=== PATIENT | male | born 1960 | race Caucasian/White ===

== ENCOUNTER → 2021-11-26 08:18 | Outpatient (BNVA) | payer OTHER, SELFPAY | PROVIDERS: PCP Obstetrics & Gynecology; Visit Provider Physician Assistant | DX: S62.304A Unspecified fracture of fourth metacarpal bone, right hand, initial encounter for closed fracture (principal) | CPT/HCPCS: 99202 ==

== ENCOUNTER 2021-12-01 08:24 | Outpatient (REF) | payer OTHER, SELFPAY ==
--- NOTE | ~2021-12-01 | XR_ITS ---
EXAMINATION: XR hand RT min 3V CLINICAL INFORMATION: Pain COMPARISON: None TECHNIQUE: 3 views of the hand XR/XR hand RT min 3V FINDINGS/IMPRESSION: Lack of a true lateral view limits assessment. No fracture or dislocation. Well corticated osseous fragment abutting the ulnar styloid changed from prior may reflect sequelae of remote ulnar styloid fracture. Advanced degenerative changes of the first carpometacarpal joint with loss of joint space, and radial subluxation of the base of the first metacarpal with respect to the trapezium, with exuberant osteophytosis, similar to prior. There is persistent extension of the thumb at the first metacarpophalangeal joint across multiple images. Again noted is a punctate radiodense foreign body noted along the first proximal interphalangeal joint measuring 3 mm.
== END 2021-12-01 08:25 | disposition home or self-care (01) ==
LOC: HO.HOSX 08:24
PROVIDERS: Visit Provider Orthopaedic Surgery
DX: S62.304D Unspecified fracture of fourth metacarpal bone, right hand, subsequent encounter for fracture with routine healing (principal)
CPT/HCPCS: 73130; 99212

== ENCOUNTER 2021-12-22 12:38 | Outpatient (REF) | payer OTHER, SELFPAY ==
--- NOTE | ~2021-12-22 | XR_ITS ---
EXAMINATION: XR hand RT min 3V CLINICAL INFORMATION: Reason for Exam M79.641 - Pain in right hand COMPARISON: 12/01/2021 hand radiographs TECHNIQUE: Three views of the hand XR/XR hand RT min 3V FINDINGS/IMPRESSION: Obliquely oriented mildly displaced fracture of the fourth metacarpal metadiaphysis in unchanged alignment. No bony callus formation or interval periosteal reaction. Redemonstration of a remote ulnar styloid avulsion fracture. Advanced degenerative changes of the first carpometacarpal joint with complete loss of joint space. Redemonstration of a punctate radiodense foreign body in the soft tissues of the first digit. Soft tissues are unremarkable.
== END 2021-12-22 12:39 | disposition home or self-care (01) ==
LOC: HO.HOSX 12:38
PROVIDERS: Visit Provider Physician Assistant
DX: S62.304D Unspecified fracture of fourth metacarpal bone, right hand, subsequent encounter for fracture with routine healing (principal)
CPT/HCPCS: 73130; 99212

== ENCOUNTER 2022-02-02 08:19 | Outpatient (REF) | payer OTHER, SELFPAY | END 2022-02-02 08:20 | disposition home or self-care (01) | LOC: HO.HOSX 08:19 | PROVIDERS: Visit Provider Orthopaedic Surgery | DX: Z13.89 Encounter for screening for other disorder (principal) ==

== ENCOUNTER 2025-01-25 02:15 | Emergency (ER) | payer OTHER, SELFPAY ==
[2025-01-25 02:20] VITALS: BP 100/54; PULSE 85; RESP 14; TEMP 36.5; O2SAT 94; BMI 28.9
--- NOTE | 2025-01-25 02:35 | MHC.EDTECH ---
assumed care of pt at this time
[2025-01-25] MEDS: 0.9 % Sodium Chloride 1,000 ML 999 ML IV (02:48)
[2025-01-25 02:49] LABS: MANUAL DIFF FLAG NO
[2025-01-25 02:50] LABS: Basophils Absolute Auto 0.1 X10*3/uL (0.0-0.2); Basophils Percent Auto 0.9 % (0-2); Eosinophils Absolute Auto 0.1 X10*3/uL (0.0-0.4); Hematocrit 38.3 % (42.0-52.0); Hemoglobin 13.4 g/dl (14.0-18.0); Imm Gran Abs Auto 0.03 X10*3/uL (0.00-0.03); Imm Gran Pct Auto 0.3 % (0.0-0.4); Lymphocytes Absolute Auto 1.3 X10*3/uL (1.2-4.9); Lymphocytes Percent Auto 13.7 % (20-40); Mean Corpuscular Volume 85.7 fL (80.0-98.0); Mean Platelet Volume 9.6 fL (9.4-12.4); Monocytes Absolute Auto 0.5 X10*3/uL (0.1-1.2); Neutrophils Absolute Auto 7.3 x10*3/uL (2.0-8.3); Neutrophils Percent Auto 79.1 % (45-73); Platelet Count 303 X10*3/uL (160-400); Red Blood Count 4.47 X10*6/uL (4.60-5.80); Red Cell Distribution Width 12.9 % (11.0-16.0); White Blood Count 9.2 X10*3/uL (4.8-10.8)
[2025-01-25 03:09] LABS: Alanine Aminotransferase 24 U/L (0-40); Albumin Level 3.7 g/dL (3.5-5.0); Alkaline Phosphatase 74 U/L (39-117); Anion Gap 13 (12-20); Aspartate Amino Transferase 28 U/L (5-37); Bilirubin Total 0.4 mg/dL (0.0-1.0); Blood Urea Nitrogen 17 mg/dL (9-16); Calcium 8.4 mg/dL (8.4-10.2); Carbon Dioxide 20 mmol/L (22-29); Chloride 107 mmol/L (96-108); Creatinine Clr Calc Pharmacy 105.3; Estimated Glomerular Filt Rate > 60; Glucose Random 113 mg/dL (60-115); Magnesium 1.8 mg/dL (1.6-2.6); Potassium 4.8 mmol/L (3.3-5.1); Sodium 135 mmol/L (135-145); Total Protein 6.1 g/dL (6.5-8.0)
--- NOTE | 2025-01-25 03:20 | ED_ITS ---
HPI - General Adult General Chief complaint: General Medical Stated complaint: full body cramps Time Seen by Provider: 01/25/25 02:27 Source: patient, RN notes reviewed and old records reviewed Mode of arrival: ambulatory Limitations: no limitations History of Present Illness ED Provider: Jasmin COOK narrative: 64-year-old male with past medical history significant for hypertension, depression who presents for evaluation of body cramping. Patient reports that about 4 or 5 hours ago he started to have cramping throughout his entire body. He states that this was episodic he felt as if any time he moved a body part at all that would cramp up for a few minutes he believes this is because he was dehydrated that he drank Gatorade prior to coming in he has not had any cramps in about the last 35 minutes he denies any other associated symptoms including fevers, chills, cough, pain, abdominal pain, nausea, vomiting, diarrhea he is not on any diuretics he reports that he had a tooth pulled today and was out golfing all day. He believes he did not drink a lot of water. Related Data Home Medications ?Medication ?Instructions ?Recorded ?Confirmed No Known Home Meds 11/26/21 11/26/21 Allergies Allergy/AdvReac Type Severity Reaction Status Date / Time No Known Allergies Allergy Verified 01/25/25 02:24 Review of Systems 2 Constitutional: Constitutional: Reports body ache(s), Denies chills, Denies fever(s), Denies frequent falls and Denies headache(s) Eyes: Eyes: Denies blurry vision and Denies exophthalmos ENT: Denies vertigo, Denies dizziness and Denies headache(s) Cardiovascular: Cardiovascular: Denies chest pain and Denies dyspnea Respiratory: Respiratory: Denies cough and Denies dyspnea Gastrointestinal: Gastrointestinal: Denies abdominal pain, Denies nausea and Denies vomiting Musculoskeletal: Musculoskeletal: Denies back pain Integumentary/Breasts: Skin/Breast: Denies rash Neurologic: Denies vertigo, Denies dizziness, Denies frequent falls and Denies headache(s) Psychiatric: Psychiatric: Denies anxiety [facility] Social History Social History Alcohol intake: former Smoked in Last 30 Days: No Use of substances other than those prescribed or required for medical reasons: Yes Substance Use Type: Marijuana Advance Directives: No Advance Directives Information Provided: Yes Do you have a plan to hurt others: No Plan Current occupational status: retired Current occupation: Lt handed Physical Exam ED Vital Signs: Vital Signs - 24 hr 01/25/25 02:20 01/25/25 03:49 Temperature 97.7 F 97.6 F Pulse Rate 85 68 Respiratory Rate 14 16 Blood Pressure 100/54 L 106/68 Pulse Oximetry 94 97 Oxygen Delivery Method Room Air Room Air BMI result Body Mass Index 28.9 Const General: healthy appearing, comfortable, no acute distress, alert and awake Nutritional Appearance: well nourished Orientation/consciousness: patient oriented x3 HENMT Head: Yes normocephalic and Yes atraumatic Eyes Eyelids: Yes eyelids normal Conjunctivae: conjunctivae normal Sclerae: sclerae normal Corneas: corneas normal Pupils: Equal, round and reactive pupils present EOM: EOMs intact bilaterally Neck Neck: Yes full ROM Resp Effort & Inspection: normal respiratory effort, able to speak in complete sentences, no audible wheezes and not labored Auscultation: clear to auscultation bilaterally Cardio Rate: regular rate Rhythm: regular rhythm GI Inspection: No distended Palpation (GI): Soft to palpation, not firm, nontender, no guarding and not rigid Skin General skin exam: no rashes or lesions noted and elasticity normal Neuro General: patient oriented x3 Cranial nerves: Yes Equal, round and reactive pupils present and Yes Bilaterally intact EOM present Cognition (Neuro): normal cognition Extrem Other: Moving all extremities well without any obvious deformities Course Reevaluation(s) Reevaluation #1: Patient re-evaluated, he has had no further cramping Time: 03:42 Medications Administered Discontinued Medications Generic Name Dose Route Start Last Admin Trade Name Freq PRN Reason Stop Dose Admin Sodium Chloride 1,000 mls @ 999 mls/hr 01/25/25 02:45 01/25/25 03:50 Ns IV 01/25/25 03:45 Infused .Q1H1M CIARAN Infusion Medical Decision Making Medical Decision Making MDM Narrative: 64-year-old male presents for evaluation of cramping. He symptoms in the last 35 minutes or so since he drank a lot of Gatorade not been having any nausea, vomiting, or diarrhea and he was not on any diuretics. it is possible that he was dehydrated from poor oral intake. he has not been doing any excessive physical activity. he denies any fevers, chills, cough, viral symptoms. He has no abdominal pain. He has a reassuring exam. His labs are significant for a mild anemia of unclear etiology. He denies any black or bloody stool. His chemistries are significant for a carbon dioxide level that is low at 20 which may be related to hyperventilating when he was in pain. his BUN is just above normal at 17 in his CPK is elevated to 230. It was not high enough to suggest acute rhabdomyolysis. we will treat with IV fluids.The patient's blood pressure is slightly low at 100/54, we will treat with IV fluids Differential Diagnosis Differential Diagnoses: The differential diagnosis associated with the presentation includes Elevated CK Rhabdomyolysis Dehydration CAROLINE Lab Data MDM Lab Attestation statement: I reviewed the patient's lab results. as above 01/25/25 02:43 01/25/25 02:43 Labs: Lab Results 01/25/25 Range/Units 02:43 WBC 9.2 (4.8-10.8) X10*3/uL RBC 4.47 L (4.60-5.80) X10*6/uL Hgb 13.4 L (14.0-18.0) g/dl Hct 38.3 L (42.0-52.0) % MCV 85.7 (80.0-98.0) fL MCH 30.0 (27.0-33.0) pg MCHC 35.0 (31.0-36.0) g/dl RDW 12.9 (11.0-16.0) % Plt Count 303 (160-400) X10*3/uL MPV 9.6 (9.4-12.4) fL Immature Gran % (Auto) 0.3 (0.0-0.4) % Neut % (Auto) 79.1 H (45-73) % Lymph % (Auto) 13.7 L (20-40) % Dooly % (Auto) 5.0 (2-11) % Eos % (Auto) 1.0 (0-4) % Baso % (Auto) 0.9 (0-2) % Lymph # (Auto) 1.3 (1.2-4.9) X10*3/uL Dooly # (Auto) 0.5 (0.1-1.2) X10*3/uL Eos # (Auto) 0.1 (0.0-0.4) X10*3/uL Baso # (Auto) 0.1 (0.0-0.2) X10*3/uL Abs Immat Gran (auto) 0.03 (0.00-0.03) X10*3/uL Absolute Neuts (auto) 7.3 (2.0-8.3) x10*3/uL Absolute Nucleated RBC 0.000 (0.0-0.012) X10*3/uL Nucleated RBC % (auto) 0.0 (0.0-0.2) /100WBC Sodium 135 (135-145) mmol/L Potassium 4.8 (3.3-5.1) mmol/L Chloride 107 (96-108) mmol/L Carbon Dioxide 20 L (22-29) mmol/L Anion Gap 13 (12-20) BUN 17 H (9-16) mg/dL Creatinine 0.84 (0.5-1.4) mg/dL Estim Creat Clear Calc 105.3 Estimated GFR > 60 Random Glucose 113 (60-115) mg/dL Calcium 8.4 (8.4-10.2) mg/dL Magnesium 1.8 (1.6-2.6) mg/dL Total Bilirubin 0.4 (0.0-1.0) mg/dL AST 28 (5-37) U/L ALT 24 (0-40) U/L Alkaline Phosphatase 74 (39-117) U/L Total Creatine Kinase 230 H (38-174) U/L Total Protein 6.1 L (6.5-8.0) g/dL Albumin 3.7 (3.5-5.0) g/dL Discharge Plan Discharge Clinical Impression: Muscle cramps Patient Disposition: Home, Self-Care Instructions: Muscle Spasm (ED) Additional Instructions: Your workup in the ER today was quite reassuring. Your red blood counts were slightly below normal as discussed Follow this up with your primary doctor. It is possible that your cramps were from mild dehydration and you were treated with IV fluids Return for new or worsening symptoms Prescriptions: No Action No Known Home Meds Print Language: Sammarinese
[2025-01-25 03:49] VITALS: BP 106/68; PULSE 68; RESP 16; TEMP 36.4; O2SAT 97
--- NOTE | 2025-01-25 04:06 | PC.NURSE ---
This customs entry writer assumed care of this Pt at 0330. Pt not answering simple yes or no questions, yelling out with every movement. Pt got out of bed, unsteady for urinal usage, Pt guided back to bed. Pt moved over to hospital bed. Bed lowered, locked and bed alarm placed.
[2025-01-25 04:10] VITALS: BP 106/68; PULSE 68; RESP 16; TEMP 36.4; O2SAT 97
== END 2025-01-25 04:11 | disposition home or self-care (01) ==
PROVIDERS: Physician Assistant; Emergency Provider Internal Medicine; PCP Internal Medicine
DX: R25.2 Cramp and spasm (principal); F33.1 Major depressive disorder, recurrent, moderate; M79.10 Myalgia, unspecified site; R11.0 Nausea; I10 Essential (primary) hypertension; Z79.899 Other long term (current) drug therapy
CPT/HCPCS: 36415; 80053; 82550; 83735; 85025; 96360; 99284

== ENCOUNTER 2025-05-02 08:36 | Outpatient (AMB) | payer OTHER, SELFPAY ==
--- NOTE | 2025-05-02 08:39 | MHC.OFFVIS ---
Vital Signs 05/02/25 08:40 Height 5 ft 11 in Weight 198 lb 6.656 oz BMI 27.7 BP 140/72 H Blood Pressure Location Lt brachial Position Sitting Pulse 62 Intake Visit Reasons: colo screening Intake Note: Luis presents in the office as a colonoscopy screening. CC: No concerns at this time. Allergies No Known Allergies Allergy (Verified 01/25/25 02:24) HPI HPI colo screening: Details: Patient is a 64-year-old male with PMH of PSTD, anxiety, insomnia, chronic back and hyperlipidemia. Referred by PCP for pre colonoscopy screening. This will be his second colonoscopy, with the last one conducted approximately eight years ago at [facility], with reports of normal results except for the removal of a couple of small polyps. He reports having normal bowel movements with no concerns for constipation or diarrhea, and no blood in stools. The patient denies abdominal pain, nausea, vomiting, heartburn, trouble swallowing, and reports a good appetite. Blood pressure readings have been slightly elevated since discontinuing lisinopril. There is a report of white coat syndrome, historically causing elevated BP readings in medical settings. Luis notes experiencing chronic back pain managed with pain medications. Weight remains stable in the 190s. Social hx: -denies ETOH use -Drug Use: Edible or smokes marijuana approximately once a week -former smoker, cessation 6 years. - family hx as below -denies personal hx of CA -denies significant cardiopulmonary history -tolerated anesthesia in the past without difficulty. PFSH Medical History (Updated 05/02/25 @ 09:34 by Claudia Downs CNP) Hypertension Colon cancer screening Surgical History (Updated 05/02/25 @ 08:42 by GUILLE Anne) Hx of colonoscopy Family History (Updated 05/02/25 @ 09:01 by Claudia Downs CNP) Mother Cancer Father Dementia Social History Alcohol intake: former Substance Use Type: Marijuana Current occupational status: retired Current occupation: Lt handed Review of Systems Const Reports as per HPI ENT Reports as per HPI Card Reports as per HPI Resp Reports as per HPI GI Reports as per HPI Reports as per HPI Physical Exam Vital Signs: Last Vital Signs Pulse 62 05/02/25 08:40 BP 140/72 H 05/02/25 08:40 BMI result Body Mass Index 27.7 Const General: healthy appearing, no acute distress and well developed Nutritional Appearance: average body habitus Orientation/consciousness: patient oriented x3 HEENT Head: Yes normal to inspection, Yes normocephalic and Yes atraumatic Face and sinus: Yes normal facial exam Eyes General: appearance normal, both eyes and all related structures Neck Neck: Yes normal visual inspection Resp Effort & Inspection: normal respiratory effort, able to speak in complete sentences, no tracheal deviation and symmetric chest movement Cardio Jugular venous distension: no JVD Neuro General: patient oriented x3 Gait exam (Neuro): Normal gait present Psych Appearance: grossly normal Mental Status: mental status grossly normal Speech and movement: Normal speech and movement present Affect: normal affect Attitude: cooperative Thought process: Normal thought process present Thought content: Normal thought content present Insight: Good insight present (Psych) Judgement: Good judgement present (Psych) Assessment & Plan Assessment & Plan (1) Colon cancer screening: Comment: 06/08/2021 colonoscopy ( [facility]) complete with good prep-polyp removal. Pathology not confirmed Code(s): Z12.11 - Encounter for screening for malignant neoplasm of colon Category: Medical Plan: Due for polyp surveillance colonoscopy. Able to locate procedure note for colonoscopy completed 06/08/2021. However, unable to locate pathology. Three sessile polyps removed from the transverse colon and cecum. No alarm features Medications: -prescriptions for laxative tablets and MiraLax sent to pharmacy; instructions for Gatorade purchase and clear liquid diet given. Patient educated on scheduling process, procedure preparation, including avoiding certain foods and ensuring clear liquid intake Advised on necessity for ride post-procedure due to sedation. (2) Hypertension: Code(s): I10 - Essential (primary) hypertension Category: Medical Qualifiers: Hypertension type: primary hypertension Qualified Code(s): I10 - Essential (primary) hypertension Plan: Home blood pressure monitoring suggested. Medications: Monitor if lisinopril needs to be restarted to discuss with PCP Plan Follow-up after colonoscopy as needed Time: I spent a total of 20 minutes on the date of encounter which includes: Preparing to see the patient (reviewed previous documentation, test results and medical history) Performing a medically appropriate exam and/or evaluation Ordering medications, tests, and procedures Documenting clinical information in the health record Medications: New bisacodyl Take four tablets once for 1 day per colonoscopy instructions 5 mg PO ONCE 4 tabs 0RF 1 day polyethylene glycol 3350 (Miralax) per colonoscopy prep instructions 238 grams PO ONCE 238 grams 0RF Coding Level of Care Code New Pt New Pt Level 2 (19096) Patient Type New Diagnoses Colon cancer screening Z12.11 Primary hypertension I10 Hypertension type: primary hypertension
[2025-05-02 08:40] VITALS: BP 140/72; PULSE 62; BMI 27.7
--- OUTSIDE RECORDS SUMMARY | 2025-05-02 08:40 | XMS_ITS | Clinical Summary ---
Author Organization [facility] Address [address] [place] [phone] Phone Care Team Providers Care Frozen Food Department Manager Name Role Phone Ciaran Vargas MD Primary Care Provider Allergies No known active allergies Medications omeprazole (PRILOSEC) 20 MG capsule Take 20 mg by mouth daily. Active lisinopril (PRINIVIL,ZESTR IL) 20 MG tablet Take 20 mg by mouth daily. Active simvastatin (ZOCOR) 20 MG tablet Take 20 mg by mouth nightly at bedtime. Active trazodone HCl (TRAZODONE ORAL) Take 50 mg by mouth nightly at bedtime. Active tramadol HCl (TRAMADOL ORAL) Take 50 mg by mouth 3 (three) times a day as needed. Active IBUPROFEN ORAL Take 800 mg by mouth as needed. Active gabapentin (NEURONTIN) 600 MG tablet Take 600 mg by mouth 3 (three) times a day. Active prazosin (MINIPRESS) 2 MG capsule Take 6 mg by mouth nightly at bedtime. Active buPROPion (WELLBUTRIN SR) 150 MG SR 12 hr tablet Take 150 mg by mouth 3 (three) times a day. Active ARIPiprazole (ABILIFY) 10 MG tablet Take 5 mg by mouth daily. Active multivitamin-mi nerals-lutein (CENTRUM SILVER) Tab Take 1 tablet by mouth daily. Active Active Problems Problem Noted Date Diagnosed Date Lumbar radiculopathy 01/20/2019 Sacroiliitis, not elsewhere classified 9 Myalgia 01/20/2019 Social History Tobacco Use Types Packs/Day Years Used Date Smoking Tobacco: Former Cigarettes Q uit: 10/20/2018 Smokeless Tobacco: Never Alcohol Use Standard Drinks/Week Comments Not Currently 0 (1 standard drink = 0.6 oz pur e alcohol) Education Answer Date Recorded Are you interested in more education? Not on allie e 02/10/2023 Are you concerned about learning? Not on file 02/10/2023 No 02/10/2023 No 02/10/2023 Digital Access Answer Date Recorded No 03/13/2023 No 03/13/2023 No 03/13/2023 Reliable internet access at home? Not on file 03/13/2023 Device with a working camera? Not on file Sex and Gender Information Value Date Recorded Sex Assigned at Male 07/05/2022 11:25 AM EDT Legal Sex Male 1:18 PM EST Gender Identity Male 07/05/2022 11:25 AM EDT Sexual Orientation Not on file Last Filed Vital Signs Vital Sign Reading Time Taken Comments Blood Pressure 129/77 07/05/2022 12:13 PM EDT Pulse 79 07/05/2022 12:13 PM EDT Temperature 36.6 C (97.9 F) 07/05/2022 12:13 PM EDT Respiratory Rate 18 07/05/2022 12:13 PM EDT Oxygen Saturation 96% 07/05/2022 12:13 PM EDT Inhaled Oxygen Concentration - - Weight 89.8 kg (198 lb) 07/05/2022 11:28 AM EDT Height 180.3 cm (5' 11 ) 07/05/2022 11:28 AM EDT Body Mass Index 27.62 07/05/2022 11:28 AM EDT Plan of Treatment Health Maintenance Due Date Last Done Comments CREATININE LEVEL 1961 LIPID PANEL 1961 POTASSIUM LEVEL 1961 DEPRESSION SCREENING 1973 SMOKING Hx and SMOKELESS TOBACCO SCREENING 1974 HEPATITIS C SCREENING 1979 HIV ONE-TIME SCREENING (18-65 YEARS) 1979 SCREENING FOR DIABETES 1996 COLOGUARD 2006 FIT TEST 2006 FOBT 2006 SIGMOIDOSCOPY 2006 VIRTUAL COLONOSCOPY 2006 COVID-19 VACCINE ( season) 2024 01/31/2022, 09/30/2021, 02/19/2021, Additional history exists Adult Td,Tdap Booster 04/17/2027 04/17/2017 , 10/16/2006, 06/24/2000 COLONOSCOPY 06/08/2031 06/08/2021 COLORECTAL CANCER SCREENING 06/08/2031 RSV VACCINE (1 - 1-dose 75+ series) 2036 HEPATITIS A VACCINES Aged Out 10/25/1996 No long er eligible based on patient's age to complete this topic ZOSTER VACCINES Completed 08/03/2020, 11/19/2019 PNEUMOCOCCAL VACCINES (50+ years) Completed 06/02/2022, 05/08/2013 HIB VACCINES Aged Out No longer eligi ble based on patient's age to complete this topic MENINGOCOCCAL VACCINES (ACWY) Aged Out No longer eligible based on patient's age to complete this topic MENINGOCOCCAL VACCINES (B) Aged Out N o longer eligible based on patient's age to complete this topic Medical Devices Not on file Procedures Procedure Name Priority Date/Time Associated Diagnosis Comments ENDOSCOPY, COLON 06/08/2021 10:4 1 AM EDT from Last 3 Months or Most Recently Relevant to Health Maintenance Results * ENDOSCOPY, COLON (06/08/2021 10:41 AM EDT) Narrative Transcriptions Ricardo Luis MD - 06/08/2021 10:41 AM EDT Patient Name: Luis Vázquez MD:: RICARDO LUIS MD Procedure Date: 06/08/2021 10:41 AM Date of : 1960 Age: 60 Admit Type: Outpatient Gender: Male Room: [facility] 04 Referring MD: CIARAN VARGAS MD Exam Type: Colonoscopy Indications: High risk colon cancer surveillance: Personalhistory of colonic polyps, Last colonoscopy: 2014 Medications: Monitored Anesthesia Care Procedure: Informed consent was obtained from the patient after discussion of the indications, limitations, alternatives, benefits, and risks of the procedure. Risks specifically discussed include but are not limited to medication reactions, missed lesions, bleeding, perforation, or the need for emergentsurgery. Throughout the procedure, the patient's bloodpressure, pulse, end-tidal CO2, and oxygen saturations were monitored continuously. The Olympus adult variable colonoscope [id number] #4was introduced through the anus and advanced to thececum, identified by the appendiceal orifice. Thecolonoscopy was performed without difficulty. The patienttolerated the procedure well. The quality of the bowel preparation was good. Complications: No immediate complications. Estimated blood loss:None. Findings: The perianal and digital rectal examinations were normal. Three sessile polyps were found in the transversecolon and cecum. The polyps were 4 mm in size. Thesepolyps were removed with a cold snare. Resection andretrieval were complete. The rectum, recto-sigmoid colon, sigmoid colon, descending colon, splenic flexure, hepatic flexure, ascending colon, appendiceal orifice, ileocecalvalve, rectum (on retroflexion) and ascending colon (on retroflexion) appeared normal. Impression: - Three 4 mm polyps in the transverse colon and inthe cecum, removed with a cold snare. Resected and retrieved. - The rectum, recto-sigmoid colon, sigmoid colon, descending colon, splenic flexure, hepatic flexure, ascending colon, appendiceal orifice and ileocecal valve are normal. Recommendation: - Discharge patient to home. - Resume previous diet. - Continue present medications. - Await pathology results. - Repeat colonoscopy in 5 years for surveillance. - I will send you pathology results by letter. Ifyou do not get results in 3 weeks telephone my office. RICARDO LUIS MD 06/08/2021 11:10:20 AM This report has been signed electronically. Number of Addenda: 0 Note Initiated On: 06/08/2021 10:41 AM Procedure Code(s): --- Professional --- 66048, Colonoscopy, flexible; with removal of tumor(s), polyp(s), or other lesion(s) by snare technique --- Technical --- 39309, Colonoscopy, flexible; with removal of tumor(s), polyp(s), or other lesion(s) by snare technique Diagnosis Code(s): --- Professional --- Z86.010, Personal history of colonic polyps D12.3, Benign neoplasm of transverse colon (hepatic flexure or splenic flexure) D12.0, Benign neoplasm of cecum --- Technical --- Z86.010, Personal history of colonic polyps D12.3, Benign neoplasm of transverse colon (hepatic flexure or splenic flexure) D12.0, Benign neoplasm of cecum CPT copyright 2018 [employer]. All rights reserved. The codes documented in this report are preliminary and upon refrigerator repairman reviewmay be revised to meet current compliance requirements. Procedure Date: 06/08/2021 10:41:[address] [place] [id number] Ciaran Vargas MD GI PROCEDURE ORDERABLES Yina l Result from Last 3 Months or Most Recently Relevant [place] [address] , [place] [address] [place] [address] Care Teams Frozen Food Department Manager Relationship Specialty Start Date End Date Ciaran Vargas MD [address] [place] [id number] PCP - General Internal Medicine 01/02/19 Additional Source Comments The information contained in this document represents components of the legal health record. It is not the complete legal health record.[facility]
--- OUTSIDE RECORDS SUMMARY | 2025-05-02 08:40 | XMS_ITS | Data Portability ---
Author Organization [facility], [facility] Address [address] [place] [address] Care Team Providers Care Informatica Mdm Developer Name Role Phone TONY BE Primary Care Provider [phone] Assessment No assessment recorded. Plan of Treatment Reminders Order Date Submit Date Provider Last Modified By Organization Details Last Modified Time Details Appointments None record ed. Lab None record ed. Referral None record ed. Procedures None record ed. Surgeries None record ed. Imaging None record ed. Medication Orders None record ed. Patient TargetsNo targets recorded. Patient InstructionsNo instructions recorded. Reason for Referral None Reported. Results Created Date Observation Date Name Description Value Unit Range Abnormal Flag Note LastModifiedBy Organization Detail LastModifiedTime 06/15/20 24 10/06/2022 imagi ng/di agnos tic resul t No observ ation record ed. [email or web address] Not Available 05/18 09:42:06 06/15/20 24 07/16/2022 imagi ng/di agnos tic resul t No observ ation record ed. [email or web address] Not Available 05/18 09:42:20 Result Notes None recorded. Problems Name Problem SNOMED Code Status Onset Date Resolution Date Notes Provider Name and Address Organization Details Recorded Time Pain of left hip joint 112611020194921 Active 2021 Status : 'A'; Not Available [facility] 4 11:58:49 Problem Notes None recorded. Procedures Surgical History Date Name Laterality Status Provider Name and Address Organization Details Recorded Time 3 Hip Surgery completed KAYLIA L'HEUREUX [facility] 01/25/2024 13:38:10 3 Shoulder Surgery completed KAYLIA L'HEUREUX [facility] 01/25/2024 13:38:10 Hip Surgery completed KAYLIA L'HEUREUX [facility] 01/25/2024 13:38:10 Imaging Results None recorded. Procedure Notes None recorded. Medical Equipment None Reported. Allergies Allergen ID Allergen Name Allergen Category Reaction Reaction Severity Criticality Documentation Date Start Date Code Code System Note Provider Name and Address Organization Details Recorded Time 21327 shrimp allergeni c extract food Not available Not available Not available 12/18/20232021 03829 2 RxNorm Not Available [facility] 4 12:44:58 Medications Name Sig Start Date Stop Date Status Note LastModified by Organization Details LastModified Time gabapentin 600 mg tablet active Not Available Not Available Not Available trazodone 50 mg tablet 1 tablet as needed by oral route. active Not Available Not Available No t Available lisinopril 20 mg tablet 1 tablet every day by oral route. active Not Available Not Available No t Available tramadol 50 mg tablet active Not Available Not Available No t Available simvastatin 40 mg tablet 01/24 completed Not Available Not Available Not Available bupropion HCl 100 mg tablet 3 tablets 3 times a day by oral route. active Not Available Not Available No t Available omeprazole ER 20 mg capsule,ext ended release 1 capsule every day by oral route. active Not Available Not Available No t Available simvastatin 20 mg tablet 1 unit by oral route. active Not Available Not Available No t Available prazosin 2 mg capsule 3 capsules every day by oral route. active Not Available Not Available No t Available amoxicillin 875 mg-potassiu m clavulanate 125 mg tablet active Not Available Not Available Not Available gabapentin 01/24 completed Not Available Not Available Not Available aripiprazol e ARIPipraz ole 10MG Tablet 2021 active Statu s: 'Curr ent'; Not Available Not Available Not Available oxybutynin active Not Available Not Av ailable Not Available oxycodone HCl-oxycodo ne-ASA Take 1 tablet up to 4 times a day as needed for severe pain 01/24 completed Statu s: 'Curr ent'; Not Available Not Available Not Available Vitals Date Recorded Body height Body mass index (BMI) Body weight Provider Name and Address Organization Details Last Updated DateTime 01/25/2024 180.34 cm 28.9 kg/m2 69227.62 g AISHWARYA LOPEZ [facility] 01/25/2024 13:38:23 Social History Question Answer Notes LastModified by Organizat ion Details LastModified Time Tobacco Smoking Status Never Smoker AISHWARYA LOPEZ [facility] 01/25/2024 13:39:45 What Is Your Relationship Status? Information not available 01/25/2024 Sex: Unknown Functional Status Question Answer Note LastModified by Organizat ion Details LastModified Time Do you use any illicit or recreational drugs? No Information not available 01/25/2024 Do you or have you ever used any other forms of tobacco or nicotine? No Information not available 01/25/2024 What is your level of alcohol consumption? None Information not available 01/25/2024 Mental Status None recorded. Family History Nothing Reported. Medical History Condition Response Allergies/Hayfever N Coronary Artery Disease N Anxiety/Depression Y Emphysema N Thyroid Problems N COPD N Pacemaker N Kidney/Bladder Problems N Anemia N Vascular Disease N Gastrointestinal Disease N Heart Attack ([place]) N Diabetes N Autoimmune disease N Bleeding Disorder N Orthotics N Arthritis Y Seizures/Epilepsy N Blood Clot N AIDS/HIV N Congestive Heart Failure (CHF) N Acid Reflux (GERD) N Cancer N Stroke N Asthma N Peripheral Vascular Disease N Sleep Apnea Y Hepatitis N Heart Disease N Rheumatoid Arthritis N Arrhythmia N Pulmonary Embolism N Fibromyalgia N Hypertension N Osteoporosis N Past Encounters Encounter ID Performer Location Encounter Start Date Encounter Closed Date Diagnosis/Indication Diagnosis SNOMED-CT Code Diagnosis ICD10 Code Diagnosis Note [id number] JENNIFER Trotter [address] [place] [address] 01/25/2024 13:32:10 02/15/2024 11:01:08 Osteoarthritis of right knee joint [id number] 10550 M17.11 Health Concerns Section Related Observation LastModified by Organization Detai ls LastModified Time None Recorded Concern Status LastModified by Organization Details LastModified Time None Recorded Advance Directives Directive None Recorded Payers Insurance Date Sequence Insurance Name Policy Number Policy White Covered Member ID White Member ID Guarantor Name 01/19/2024 [facility] Luis Smart [id number] Luis Smart Notes Date Note Type Note Provider Name and Address Organization Details Recorded Time 01/25/2024 text/html I am seeing the patient today under the supervision of Dr. Sherwood who was available but who did not see the patient. HPI: Patient is a 63 year old male presenting today for evaluation of right knee pain. About 6 weeks ago the patient noticed it did subside with swell a large amount of swelling in his knee. It did subside with icing resting and elevating. He also took oral anti-inflammatories with some benefit. He has had difficulty with this knee in the past and has a chronically torn ACL per his report. Overall the pain has improved to almost no symptoms at today's visit. Knee feels stiff at times and causes occasional sharp pains along the lateral aspect of the knee. Has tried oral medications with minimal relief. Denies any new injuries, trauma or mechanical symptoms.Does have occasional giving out sensations. Past family, medical, social history and review of systems has been reviewed, updated and is located in the patient s chart. Examination: The patient is well appearing and in no apparent distress. Alert and oriented x3. Gait is Antalgic favoring the right side.left knee reveals no evidence of any edema, erythema, or warmth. Valgus Deformity. Range of motion of the knee slightly limited with mild discomfort at the end ranges. Mild effusion. Does have some tenderness to palpation about the lateral hemijoint line. Patellofemoral crepitus is noted. No ligamentous laxity. Negative Fauzia s. Calf is supple and nontender. Neurovascularly intact distally. X-rays ordered, obtained and reviewed at [facility]. 4 views of the right knee today showed narrowing of the lateral compartment of the knee. With slight osteophyte formation. Narrowing is noted of patellofemoral joint as well. No evidence of any other bony lesions or pathology. Impression: Osteoarthritis, right knee Plan:I explained the nature of the diagnosis with the patient and its treatment options both conservative and surgical. Conservative measures were discussed at length including but not limited to physical therapy, bracing, anti-inflammatories and injection therapies. Patient would like to try holding off on conservative management being pain free. The patient will contact the office if he feels as if he may need an aspiration and potential cortisone injection. The patient understands and agrees with the plan. They know to call if they have any further questions or concerns regarding their symptoms, or to follow up sooner if needed. Scott Linares PA-C [address] [facility] [address], [place], [address], [facility] 01/25/2024 14:02:05
== END 2025-05-02 09:06 | disposition home or self-care (01) ==
LOC: HO.HGI 08:37
PROVIDERS: PCP Internal Medicine; Visit Provider Nurse Practitioner Family
DX: Z01.818 Encounter for other preprocedural examination (principal); Z12.11 Encounter for screening for malignant neoplasm of colon; I10 Essential (primary) hypertension
CPT/HCPCS: 99202

== ENCOUNTER → 2025-05-02 08:36 | Outpatient (BNVA) | payer OTHER, SELFPAY | PROVIDERS: PCP Internal Medicine; Visit Provider Nurse Practitioner Family | DX: Z12.11 Encounter for screening for malignant neoplasm of colon (principal); I10 Essential (primary) hypertension; F41.9 Anxiety disorder, unspecified; E78.5 Hyperlipidemia, unspecified; F43.10 Post-traumatic stress disorder, unspecified; G47.00 Insomnia, unspecified; M54.9 Dorsalgia, unspecified; G89.29 Other chronic pain | CPT/HCPCS: 99202 ==

== ENCOUNTER 2025-07-10 09:22 | Emergency (ER) | payer OTHER, SELFPAY ==
--- NOTE | ~2025-07-10 | XR_ITS ---
EXAMINATION: XR LUMBOSACRAL SPINE CLINICAL INFORMATION: Back pain COMPARISON: None available. TECHNIQUE: Three views of the lumbosacral spine. FINDINGS: Atherosclerotic calcification is present in the abdominal aorta and iliac arteries. There are 5 nonrib-bearing lumbar segments. T12-L1: There is mild disc space narrowing. There are anterior osteophytes with sclerosis. There is mild wedging of the T12 vertebral body contour. L1-L2: Unremarkable L2-L3: There is minimal grade 1 retrolisthesis and mild disc space narrowing. There are small endplate osteophytes. There is facet sclerosis L3-L4: There is mild displacement. There is facet sclerosis and osteophytes. There are anterior osteophytes L4-L5: There is moderate disc space during, vacuum phenomena, and endplate osteophytes with sclerosis. There is also facet sclerosis and osteophytes. L5-S1: There is moderate loss of disc height with endplate sclerosis and osteophytes. There is facet osteophytes and sclerosis as well. XR/XR lumbar spine 2-3V IMPRESSION: Degenerative disc disease and facet osteoarthritis is most advanced at T12-L1, L4-5, and L5-S1. Probable chronic mild compression fracture of T12. Electronically signed by: Jesús Robbins MD 07/10/2025 10:32 AM EDT
[2025-07-10 09:32] VITALS: BP 126/72; PULSE 56; O2SAT 97
[2025-07-10 09:37] VITALS: BP 150/84; PULSE 57; RESP 18; TEMP 36.7; O2SAT 95
[2025-07-10 09:42] VITALS: BMI 28.7
--- NOTE | 2025-07-10 09:44 | ED.BACK ---
HPI - Back Pain/Injury General Chief Complaint: Back Pain/Injury Stated Complaint: WOKE UP W/BACK PAIN,UNABLE TO MOVE Time Seen by Provider: 07/10/25 09:33 Source: patient and EMS Mode of arrival: EMS Limitations: no limitations History of Present Illness ED Provider: DR. Cuba HPI Narrative: 65-year-old male came in by ambulance for evaluation of low back pain. Pain started 1 week ago after he played golf pain was progressively getting worse was seen by his PCP yesterday who prescribed him lidocaine patch and muscle relaxant with no relief of patient's pain, patient could not get out of bed because of severe lower back pain, no urinary incontinence, no stool incontinence, no weakness, no numbness. Related Data Home Medications ?Medication ?Instructions ?Recorded ?Confirmed bupropion HCl 300 mg 24 hr tablet, 300 mg PO QAM 05/02/25 extended release omeprazole 10 mg capsule,delayed 10 mg PO DAILY 05/02/25 release oxybutynin chloride 10 mg 10 mg PO DAILY 05/02/25 tablet,extended release 24 hr prazosin 2 mg capsule 2 mg PO TID 05/02/25 simvastatin 20 mg tablet 20 mg PO BEDTIME 05/02/25 tramadol 50 mg tablet 50 mg PO BID PRN 05/02/25 trazodone 50 mg tablet 50 mg PO BEDTIME PRN 05/02/25 Previous Rx's ?Medication ?Instructions ?Recorded bisacodyl 5 mg tablet,delayed 5 mg PO ONCE 1 day #4 tabs 05/02/25 release polyethylene glycol 3350 17 238 g PO ONCE #238 grams 05/02/25 gram/dose oral powder (Miralax) cyclobenzaprine 10 mg tablet 10 mg PO TID PRN muscle spasm #20 07/10/25 tabs ibuprofen 800 mg tablet 800 mg PO Q8H PRN pain #20 tabs 07/10/25 oxycodone 5 mg tablet 5 mg PO Q8H PRN pain #10 tabs 07/10/25 Allergies Allergy/AdvReac Type Severity Reaction Status Date / Time No Known Allergies Allergy Verified 07/10/25 09:43 Review of Systems Review of Systems: All other systems are reviewed and are negative Constitutional: Reports as per HPI and Reports no additional constitutional complaints Eyes: Reports as per HPI and Reports no additional eye complaints Reports system reviewed and no additional complaints, except as documented Cardiovascular: Reports as per HPI and Reports no additional cardiovascular complaints Respiratory: Reports as per HPI and Reports no additional respiratory complaints Gastrointestinal: Reports as per HPI and Reports no additional gastrointestinal complaints Genitourinary: Reports no additional female genitourinary complaints Musculoskeletal: Reports no additional musculoskeletal complaints Skin/Breast: Reports system reviewed and no additional complaints, except as docu Psychiatric: Reports no additional psychiatric complaints Endocrine: Reports no additional endocrine complaints Hematologic/Lymphatic: Reports no additional hematologic/lymphatic complaints Allergic/Immunologic: Reports no additional allergic/immunologic complaints Reports system reviewed and no additional complaints, except as documented and Reports Abnormal speech present [facility] Past Medical History Medical History Hypertension Colon cancer screening Surgical History Hx of colonoscopy Family History Family History Mother Cancer Father Dementia Social History Social History Alcohol intake: former Smoked in Last 30 Days: No Substance Use Type: Marijuana Substance Use Frequency: Occasionally Advance Directives: Yes Advance Directives Information Provided: No Advance Directives on File: No Current occupational status: retired Current occupation: Lt handed Physical Exam Vital Signs: Vital Signs: Last Vital Signs Temp 98.0 F 07/10/25 09:37 Pulse 47 L 07/10/25 11:30 Resp 16 07/10/25 11:30 BP 154/76 H 07/10/25 11:30 Pulse Ox 96 07/10/25 11:30 O2 Del Method Room Air 07/10/25 11:30 O2 Flow Rate 2 07/10/25 10:43 BMI result Body Mass Index 28.7 Vital signs have been reviewed and appear to be correct. Blood pressure elevated. Heart rate normal. Respiratory rate normal. Temperature normal. Oxygen saturation normal. Appearance: Alert. Oriented X3. No acute distress. Head: Normal external exam. Normocephalic. Atraumatic. No Shay signs noted. No raccoon eyes noted Eyes: PERRLA. EOMI. Conjunctiva and sclera normal. Eyelids normal. ENT: TM's Normal. Pharynx normal. Uvula midline. Moist mucous membranes. No trismus noted. No drooling noted. No muffled voice noted. Neck: Normal inspection. Neck supple. FROM. No adenopathy. Thyroid Normal. No meningeal signs. No neck mass noted. CVS: Normal heart rate and rhythm. Heart sound normal. No murmurs noted. Pulses normal throughout. Respiratory: No respiratory distress. Painless inspiration. Breath sounds normal. No wheezes/rales/rhonchi noted. Chest nontender. No accessory muscle usage noted or decreased air movement noted. Abdomen: Soft and nontender. Bowel sounds normal in all 4 quadrants. No distention noted. No organomegaly noted. No visible injury noted. Back: No CVA tenderness. Full range of motion noted. Skin: Skin warm and dry. Normal skin color. Normal skin turgor. No rashes/lesions/lacerations noted. Extremities: No lower extremity edema. Extremities exhibit normal range of motion. Extremities nontender. Neuro: Oriented X 3. Cranial nerve exam: II-XII are grossly intact No motor deficit. No sensory deficit. Reflexes normal. Course Reevaluation(s) Reevaluation #1: Patient feels much better, able to ambulate, repeat neuro exam is unremarkable for weakness or numbness. Will discharge on oxycodone and muscle relaxant with ibuprofen. Time: 12:26 Medications Administered Discontinued Medications Generic Name Dose Route Start Last Admin Trade Name Ovidioq PRN Reason Stop Dose Admin Diazepam 10 mg 07/10/25 09:45 07/10/25 09:53 Diazepam 10 Mg/2 Ml Cartridge IVPUSH 07/10/25 09:46 10 mg STAT STA Administration Hydromorphone HCl 2 mg 07/10/25 09:45 07/10/25 09:56 Hydromorphone Hcl 2 Mg/Ml Vial IVPUSH 07/10/25 09:46 0.5 mg ONCE ONE Administration Protocol Hydromorphone HCl 1 mg 07/10/25 11:23 07/10/25 11:30 Hydromorphone Hcl 1 Mg/Ml Syringe IVPUSH 07/10/25 11:24 1 mg ONCE ONE Administration Protocol Ketorolac Tromethamine 15 mg 07/10/25 09:45 07/10/25 09:53 Ketorolac Tromethamine 15 Mg/Ml Vial IVPUSH 07/10/25 09:46 15 mg ONCE ONE Administration Medical Decision Making Differential Diagnosis Differential Diagnoses: The differential diagnosis associated with the presentation includes (Lumbar radiculopathy, cauda equina syndrome, muscular spasm, neurological deficit.) Admission/Observation Consideration of admission/observation: Escalation of care including admission/observation considered Lab Data MDM Lab Attestation statement: I reviewed the patient's lab results. Independent Interpretation I performed an independent interpretation of an: Plain X-Ray (Lumbar spine:Degenerative disc disease and facet osteoarthritis is most advanced at T12-L1, L4-5, and L5-S1. Probable chronic mild compression fracture of T12.) Radiology Impression Discussion of test interpretation with radiology: I have reviewed the radiologist's reading. Discharge Plan Discharge Clinical Impression: Lumbar spine strain Patient Disposition: Home, Self-Care Instructions: Muscle Strain (ED) Prescriptions: New oxycodone 5 mg tablet 5 mg PO Q8H PRN (Reason: pain) Qty: 10 0RF Rx Instructions: Partial Fill upon patient request. ibuprofen 800 mg tablet 800 mg PO Q8H PRN (Reason: pain) Qty: 20 0RF cyclobenzaprine 10 mg tablet 10 mg PO TID PRN (Reason: muscle spasm) Qty: 20 0RF No Action trazodone 50 mg tablet 50 mg PO BEDTIME PRN oxybutynin chloride 10 mg tablet extended release 24hr 10 mg PO DAILY tramadol 50 mg tablet 50 mg PO BID PRN omeprazole 10 mg capsule,delayed release(DR/EC) 10 mg PO DAILY simvastatin 20 mg tablet 20 mg PO BEDTIME prazosin 2 mg capsule 2 mg PO TID bupropion HCl 300 mg tablet extended release 24 hr 300 mg PO QAM bisacodyl 5 mg tablet,delayed release (DR/EC) 5 mg PO ONCE 1 Days Qty: 4 0RF Rx Instructions: Take four tablets once for 1 day per colonoscopy instructions polyethylene glycol 3350 [Miralax] 17 gram/dose powder 238 g PO ONCE Qty: 238 0RF Rx Instructions: per colonoscopy prep instructions Referrals: Lily Downey MD [Primary Care Provider, Internal Medicine] Stand Alone Forms: Work/School Release Print Language: Argentine
[2025-07-10] MEDS: diazePAM 10 MG/2 ML CARTRIDGE IVPUSH (09:53)
[2025-07-10 09:56] VITALS: RESP 16
--- NOTE | 2025-07-10 10:02 | PC.NURSE ---
Pt sedated after IV valium. Despite 2mg Dilaudid ordered, pt only given 0.5mg Dilaudid. MD Cuba made aware.
[2025-07-10 10:43] VITALS: BP 138/71; PULSE 54; RESP 12; O2SAT 95
[2025-07-10 11:30] VITALS: BP 154/76; PULSE 47; RESP 16; O2SAT 96
[2025-07-10 13:07] VITALS: BP 141/69; PULSE 50; RESP 16; TEMP 37.1; O2SAT 97
--- OUTSIDE RECORDS SUMMARY | 2025-07-10 13:22 | XMS_ITS | Encounter Summary ---
Author Organization [facility] Address [address] [place] [address] [place] [address] Phone Care Team Providers Care Cloth Roll Winder Name Role Phone Ciaran Vargas MD Primary Care Provider Encounter Details Date Type Department Care Team (Late st Contact Info) Description 06/08/2021 Procedure Pass [facility] Endoscopy Admitting Dept Virtual Department [address] [place] [address] Social History Tobacco Use Types Packs/Day Years Used Date Smoking Tobacco: Former Cigarettes Q uit: 10/20/2018 Smokeless Tobacco: Never Alcohol Use Standard Drinks/Week Comments Not Currently 0 (1 standard drink = 0.6 oz pur e alcohol) Sex and Gender Information Value Date Recorded Sex Assigned at Male 07/05/2022 11:25 AM EDT Legal Sex Male 1:18 PM EST Gender Identity Male 07/05/2022 11:25 AM EDT Sexual Orientation Not on file documented as of this encounter Plan of Treatment Not on file documented as of this encounter Visit Diagnoses Not on filedocumented in this encounter Care Teams Cloth Roll Winder Relationship Specialty Start Date End Date Ciaran Vargas MD [address] [place] [address] PCP - General Internal Medicine 01/02/19 documented as of this encounter Additional Source Comments The information contained in this document represents components of the legal health record. It is not the complete legal health record.[facility]
--- OUTSIDE RECORDS SUMMARY | 2025-07-10 13:23 | XMS_ITS | Encounter Summary ---
Author Organization [facility] Address [address] [place] [address] [place] [address] Phone Care Team Providers Care Data Security Analyst Name Role Phone Ciaran Vargas MD Primary Care Provider [phone] Encounter Details Date Type Department Care Team (Late st Contact Info) Description 02/19/2019 Telephone [facility] [address] [place] [address] Owen Cabrales MD [address] [facility] [place] [address] [email or web address] Social History Tobacco Use Types Packs/Day Years [...] on filedocumented in this encounter Care Teams Data Security Analyst Relationship Specialty Start Date End Date Ciaran Vargas MD [address] [place] [address] PCP - General Internal Medicine 01/02/19 documented as of this encounter Additional Source Comments The information contained in this document represents components of the legal health record. It is not the complete legal health record.[facility]
--- OUTSIDE RECORDS SUMMARY | 2025-07-10 13:23 | XMS_ITS | Clinical Summary ---
Author Organization [facility] Address [address] [place] [address] Phone Care Team Providers Care Channeler Name Role Phone Ciaran Vargas MD Primary [...] 1979 HIV ONE-TIME SCREENING (18-65 YEARS) 1979 COLOGUARD 2006 FIT TEST 2006 FOBT 2006 SIGMOIDOSCOPY 2006 VIRTUAL COLONOSCOPY 2006 INFLUENZA VACCINE (#1) 2025 , 08/03/2020, 06/30/2019, Additional history exists COVID-19 VACCINE ( season) 2025 01/31/2022, 09/30/2021, 02/19/2021, Additional history exists Adult [...] 60 Admit Type: Outpatient Gender: Male Room: [facility] 04 Referring MD: CIARAN VARGAS MD Exam [...] monitored continuously. The Olympus adult variable colonoscope [id number] #4was introduced through the anus and advanced [...] 10:41 AM Procedure Code(s): --- Professional --- 80669, Colonoscopy, flexible; with removal of tumor(s), polyp(s), or other lesion(s) by snare technique --- Technical --- 43880, Colonoscopy, flexible; with removal of tumor(s), polyp(s), [...] Benign neoplasm of cecum CPT copyright 2018 [employer]. All rights reserved. The codes documented in this report are preliminary and upon hvac designer reviewmay be revised to meet current compliance requirements. Procedure Date: 06/08/2021 10:41:[address] [place] [address] Ciaran Vargas MD GI PROCEDURE ORDERABLES Yina l Result from Last 3 Months or Most Recently Relevant to Health Maintenance Insurance Care Teams Channeler Relationship Specialty Start Date End Date Ciaran Vargas MD [address] [place] [address] PCP - General Internal Medicine 01/02/19 Additional Source Comments The information contained in this document represents components of the legal health record. It is not the complete legal health record.[facility]
== END 2025-07-10 13:10 | disposition home or self-care (01) ==
PROVIDERS: Emergency Provider Emergency Medicine; PCP Internal Medicine
DX: S39.012A Strain of muscle, fascia and tendon of lower back, initial encounter (principal); X58.XXXA Exposure to other specified factors, initial encounter; Y93.9 Activity, unspecified; Y92.9 Unspecified place or not applicable; Y99.8 Other external cause status; Z79.899 Other long term (current) drug therapy
CPT/HCPCS: 72100; 96374; 96375; 96376; 99284; J1171; J1885; J3360

== ENCOUNTER → 2025-07-10 09:43 | Outpatient (BNV) | payer OTHER, SELFPAY | PROVIDERS: Emergency Provider Emergency Medicine; PCP Internal Medicine; Visit Provider Radiology Diagnostic Radiology | DX: M51.360 Other intervertebral disc degeneration, lumbar region with discogenic back pain only (principal) | CPT/HCPCS: 72100 ==